=== PATIENT | male | born 1935 | race Caucasian/White ===

== ENCOUNTER 2017-06-03 21:15 | Emergency (ER) | payer MEDICARE, OTHER ==
[2017-06-03 22:36] LABS: CHLORIDE,CL 109 mmol/L (98-107); SODIUM,NA 146 mmol/L (136-145)
--- NOTE | 2017-06-03 22:52 | EDM.PDOC ---
ED HPI GENERAL MEDICAL PROBLEM - General Chief Complaint: Neuro Symptoms/Deficits Stated Complaint: neuro changes Time Seen by Provider: 06/03/17 21:15 Source of Information: Reports: Patient History Limitations: Reports: Altered Mental Status - History of Present Illness INITIAL COMMENTS - FREE TEXT/NARRATIVE: Pt resides at the care center here in town and was found unresponsive at 4pm today. Prior to calling EMS pt awoke and they decided not to call EMS and then around 8pm tonight staff was providing snacks and again found the pt unresponsive EMS was called and transferred. Onset: Sudden Onset Date: 06/03/17 Onset Time: 16:00 - Related Data Allergies Allergy/AdvReac Type Severity Reaction Status Date / Time atorvastatin Allergy Other Verified 06/03/17 21:45 carvedilol [From Coreg] Allergy Other Verified 06/03/17 21:45 morphine Allergy Other Verified 06/03/17 21:45 Penicillins Allergy Other Verified 06/03/17 21:45 simvastatin Allergy Other Verified 06/03/17 21:45 Curxwdw-Qeo-Sts Reductase Allergy Other Verified 06/03/17 21:45 Inhibitor zolpidem [From Ambien] Allergy Other Verified 06/03/17 21:45 ED ROS GENERAL - Review of Systems Review Of Systems: Unable To Obtain (Pt is does not respond appropriate or follows commands) ED EXAM, NEURO - Physical Exam Exam: See Below Exam Limited By: Altered Mental Status General Appearance: Obtunded Eye Exam: Bilateral Eye: Abnormal EOM, PERRL (sluggish) Ears: Hearing Loss (is wearing hearing aids) Head Exam: Atraumatic, Normocephalic, Other (healing facial bruise to the right eye ) Neck: Normal Inspection Respiratory/Chest: No Respiratory Distress, Lungs Clear, No Accessory Muscle Use Cardiovascular: Normal Peripheral Pulses GI/Abdominal: Normal Bowel Sounds, Soft, Non-Tender, No Organomegaly, No Distention Neurological: Abnormal Gait, Ataxia, Abnormal Light Touch, Difficulty Walking, Other (NIH scale 14) Extremities: Non-Tender, No Pedal Edema, Normal Capillary Refill EKG INTERPRETATION Rhythm: A-Fib Course - Vital Signs Last Recorded V/S: Last Vital Signs Temp 36.2 C 06/03/17 21:41 Pulse 103 H 06/03/17 21:41 Resp 15 06/03/17 21:41 BP 169/99 H 06/03/17 21:41 Pulse Ox 94 L 06/03/17 21:41 - Orders/Labs/Meds Orders: Active Orders 24 hr Category Date Time Status Head wo Cont [CT] Routine Exams 06/03/17 21:30 Taken Labs: Laboratory Tests 06/03/17 06/03/17 06/03/17 Range/Units 22:00 22:00 22:00 WBC 8.7 (4.0-10.0) x10^3/uL RBC 4.00 L (4.5-6.0) x10^6/uL Hgb 12.3 L (14.0-18.0) g/dL Hct 38.8 L (40.0-52.0) % MCV 97.0 H (78.0-93.0) fL MCH 30.8 (26.0-32.0) pg MCHC 31.7 L (32.0-36.0) g/dL RDW Coeff of Doris 16.7 H (10.0-15.0) % Plt Count 192 (130-400) x10^3/uL Neut % (Auto) 67.0 (50.0-80.0) % Lymph % (Auto) 20.2 L (25.0-50.0) % [place] % (Auto) 9.4 (2.0-11.0) % Eos % (Auto) 3.2 (0.0-4.0) % Baso % (Auto) 0.2 (0.2-1.2) % PT 10.2 (9.8-11.8) SEC INR 0.9 L (2.0-3.5) Sodium 146 H (136-145) mmol/L Potassium 4.1 (3.5-5.1) mmol/L Chloride 109 H (98-107) mmol/L Carbon Dioxide 28 (21-32) mmol/L BUN 48 H (7-18) mg/dL Creatinine 3.6 H* (0.70-1.30) mg/dL Est Cr Clr Drug Dosing TNP Estimated GFR (MDRD) 16 Glucose 98 (74-106) mg/dL Calcium 11.3 H (8.5-10.1) mg/dL Corrected Calcium 12.18 H* (8.5-10.1) mg/dL Total Bilirubin 0.3 (0.2-1.0) mg/dL AST 13 L (15-37) U/L ALT 19 (16-63) U/L Alkaline Phosphatase 83 (46-116) U/L Creatine Kinase 25 L (39-308) U/L Creatine Kinase Index 6.0 H (0.0-4.0) % CK-MB (CK-2) 1.5 (0.0-3.6) ng/mL Troponin I 0.034 (<=0.056) ng/mL Total Protein 7.2 (6.4-8.2) g/dL Albumin 2.9 L (3.4-5.0) g/dL Globulin 4.3 Albumin/Globulin Ratio 0.67 - Radiology Interpretation CT Results Date: 06/03/17 (no acute findings) - Re-Assessments/Exams Free Text/Narrative Re-Assessment/Exam: 06/03/17 22:55 NO acute changes. Pt is resting comfortably. Did have a discussion with the family including and daughter Judi regarding findings and the need to do a MRI to help clarify a thrombolitic stroke. Also talked with them regarding thrombotic care and it would be outside the window and could potentially be more harmful. Family discussed the pt is a Code level 3 comfort cares per paperwork and the wishes despite the possible stroke and abnormal lab findings they would like him to return to the [facility] and continue is code level 3 comfort cares. Departure - Departure Time of Disposition: 23:00 Disposition: DC/Tfer to Longterm Care [facility] Condition: Poor Clinical Impression: Cerebrovascular accident (CVA) Qualifiers: CVA mechanism: unspecified Qualified Code(s): I63.9 - Cerebral infarction, unspecified - Discharge Information Referrals: Mirtha Norwood DO [Primary Care Provider] - Forms: ED Department Discharge - My Orders Last 24 Hours: My Active Orders 06/03/17 21:30 Head wo Cont [CT] Routine - Assessment/Plan Last 24 Hours: My Active Orders 06/03/17 21:30 Head wo Cont [CT] Routine
== END 2017-06-03 23:30 ==
LOC: VM.ED 21:15
DX: I63.9 Cerebral infarction, unspecified (principal); S00.83XD Contusion of other part of head, subsequent encounter; H91.90 Unspecified hearing loss, unspecified ear; I48.91 Unspecified atrial fibrillation; Z88.0 Allergy status to penicillin; Z88.8 Allergy status to other drugs, medicaments and biological substances; Z88.5 Allergy status to narcotic agent; X58.XXXD Exposure to other specified factors, subsequent encounter
CPT/HCPCS: 36415; 70450; 80053; 82550; 82553; 84484; 85025; 85610; 93010; 99284-GF; 99285